=== PATIENT | male | born 1965 | race African-American/Black ===

== ENCOUNTER 2023-10-01 10:33 | Inpatient (IN) | payer OTHER ==
[2023-10-01 11:24] VITALS: BMI 22.9
[2023-10-01] MEDS ORDERED: DICYCLOMINE HCL 10 MG CAPSULE PO PRN (12:39)
[2023-10-01] MEDS ORDERED: ACETAMINOPHEN 325 MG TABLET (FP) PO PRN (12:39)
[2023-10-01] MEDS ORDERED: ONDANSETRON *ODT* 4 MG TABLET SL PRN (12:39)
[2023-10-01] MEDS ORDERED: NALOXONE HCL (KLOXXADO) 8 MG SPRAY NS PRN (12:39)
[2023-10-01] MEDS ORDERED: METHOCARBAMOL 500 MG TABLET PO PRN (12:39)
[2023-10-01] MEDS ORDERED: BENZONATATE 200 MG CAPSULE PO PRN (12:39)
[2023-10-01] MEDS ORDERED: LOPERAMIDE HCL 2 MG CAPSULE PO PRN (12:39)
[2023-10-01] MEDS ORDERED: POLYETHYLENE GLYCOL (HEALTHYLAX) 3350 17 GM PACKET PO PRN (12:39)
[2023-10-01] MEDS ORDERED: NICOTINE POLACRILEX 4 MG GUM BUC PRN (12:39)
[2023-10-01] MEDS ORDERED: MAGNESIUM HYDROX 2400MG/30ML ORAL SUSPENSION 30 ML CUP PO PRN (12:39)
[2023-10-01] MEDS ORDERED: hydrOXYzine PAMOATE 25 MG CAPSULE (FP) PO PRN (12:39)
[2023-10-01] MEDS ORDERED: MAG HYDROX/AL HYDROX/SIMETH 30 ML UNIT-DOSE CUP PO PRN (12:39)
[2023-10-01] MEDS ORDERED: IBUPROFEN 400 MG TABLET (FP) PO PRN (12:39)
[2023-10-01] MEDS ORDERED: IBUPROFEN 600 MG TABLET (FP) PO PRN (12:39)
[2023-10-01] MEDS ORDERED: BISMUTH SUBSALICYLATE 262 MG/15 ML BTL PO PRN (12:39)
[2023-10-01] MEDS ORDERED: guaiFENesin 600 MG TABLET.ER (FP) PO PRN (12:39)
[2023-10-01] MEDS ORDERED: BENZOCAINE/MENTHOL (CHLORASEPTIC ) LOZENGE MM PRN (12:39)
[2023-10-01] MEDS ORDERED: NALOXONE HCL 0.4 MG/ML VIAL IM PRN (12:39)
[2023-10-01] MEDS ORDERED: chlordiazePOXIDE HCL 25 MG CAPSULE PO PRN (12:39)
[2023-10-01] MEDS ORDERED: PRENATAL VITAMINS W/ FOLIC ACID TABLET (FP) PO ONE (12:48)
[2023-10-01] MEDS ORDERED: chlordiazePOXIDE HCL 25 MG CAPSULE ONE (12:48)
[2023-10-01] MEDS: PRENATAL VITAMINS W/ FOLIC ACID TABLET (FP) PO SCH (12:53)
[2023-10-01] MEDS: chlordiazePOXIDE HCL 25 MG CAPSULE PO ONE (12:53)
[2023-10-01] MEDS: chlordiazePOXIDE HCL 25 MG CAPSULE PO SCH (17:11)
[2023-10-01] MEDS: THIAMINE HCL 100 MG TABLET (FP) PO SCH (22:04)
[2023-10-01] MEDS: MELATONIN 5 MG TABLETS PO SCH (22:04)
[2023-10-01] MEDS: traZODone HCL 50 MG TABLET (FP) PO ONE (22:05)
[2023-10-02 11:06] LABS: MCH 34.5 pg (25.7-33.7); MCHC 34.2 g/dl (32.0-35.9); MEAN CELL VOLUME 100.9 fl (80-96); MEAN PLT VOLUME 6.8 fl (7.5-11.1); PLATELET COUNT 307 10^3/uL (134-434); RBC 4.06 M/mm3 (4.00-5.60); RDW 13.5 % (11.9-15.9); WHITE BLOOD COUNT 5.7 K/mm3 (4.0-10.0)
[2023-10-02 11:16] LABS: POTASSIUM 4.2 mmol/L (3.5-5.1)
[2023-10-02 11:22] LABS: CALCIUM 9.4 mg/dL (8.5-10.1)
[2023-10-02 11:23] LABS: ALBUMIN 4.3 g/dl (3.4-5.0); BLOOD UREA NITROGEN 9.6 mg/dL (7-18)
[2023-10-02 11:26] LABS: CREATININE 0.8 mg/dL (0.55-1.3)
[2023-10-02 11:27] LABS: BILIRUBIN,TOTAL 0.7 mg/dL (0.2-1); TOT PROT 7.9 g/dl (6.4-8.2)
[2023-10-02] MEDS: FLU VACCINE (FLULAVAL) PF 60 MCG/0.5 ML SYRINGE 2023-2024 IM ONE (13:06)
[2023-10-02] MEDS: ELVITEG/COB/EMTRI/TENOF (GENVOYA) TABLET PO SCH (14:37)
[2023-10-02] MEDS: FAMOTIDINE 20 MG TABLET PO SCH (22:11)
[2023-10-03] MEDS: chlordiazePOXIDE HCL 25 MG CAPSULE PO SCH (05:24)
[2023-10-04] MEDS ORDERED: chlordiazePOXIDE HCL 10 MG CAPSULE PO PRN
[2023-10-04] MEDS: chlordiazePOXIDE HCL 10 MG CAPSULE PO SCH (05:16)
[2023-10-04 09:38] VITALS: BP 112/76; PULSE 62; RESP 18; TEMP 97.1
[2023-10-05] MEDS ORDERED: chlordiazePOXIDE HCL 10 MG CAPSULE PO SCH (05:00)
[2023-10-06] MEDS ORDERED: chlordiazePOXIDE HCL 10 MG CAPSULE PO ONE (05:00)
== END 2023-10-04 12:35 | disposition home or self-care (01) | DRG 775 ==
LOC: YASAS 10:33 → Y6N 13:06
PROVIDERS: ADMIT Allergy & Immunology; ATTEND Surgery
PROC: HZ2ZZZZ Detoxification Services for Substance Abuse Treatment (ICD-10-PCS; principal; 2023-10-01)
DX: F10.230 Alcohol dependence with withdrawal, uncomplicated (principal); F12.20 Cannabis dependence, uncomplicated; F17.210 Nicotine dependence, cigarettes, uncomplicated; F41.9 Anxiety disorder, unspecified; F32.A Depression, unspecified; Z21 Asymptomatic human immunodeficiency virus [HIV] infection status; K21.9 Gastro-esophageal reflux disease without esophagitis; G47.00 Insomnia, unspecified; R76.8 Other specified abnormal immunological findings in serum
CPT/HCPCS: 36415; 80053; 80305; 80307; 82140; 85027; 86593; 86780; 87635; 90686; 93005; 93010; G0008